=== PATIENT | female | born 1930 | race Caucasian/White ===

== ENCOUNTER 2017-01-15 20:23 | Inpatient (IN) | payer MEDICARE, BC ==
--- NOTE | 2017-01-15 20:42 | EDM.PDOC ---
ED HPI GENERAL MEDICAL PROBLEM - General Chief Complaint: Neurological Problem Stated Complaint: DISORIENTATED, MAY HAVE HAD MINI STROKE? Time Seen by Provider: 01/15/17 20:38 Source of Information: Reports: Patient, Family History Limitations: Reports: No Limitations - History of Present Illness INITIAL COMMENTS - FREE TEXT/NARRATIVE: pt states feels fine, denies pain anywhere. son states they been out and got home and mother suddenly became confused and unable to speak denies falling/ unsteadiness. came here and now she seems fine again. denies prior h/o. - Related Data Allergies Allergy/AdvReac Type Severity Reaction Status Date / Time No Known Drug Allergies Allergy Cannot Verified 01/15/17 20:39 Remember Home Meds: Home Meds Hydrochlorothiazide 25 mg PO DAILY 03/07/16 [History] LORazepam [LORazepam] 1 mg PO DAILY 03/07/16 [History] Levothyroxine 75 mcg PO DAILY 03/07/16 [History] Meclizine [Antivert] 25 mg PO DAILY 03/07/16 [History] Metoprolol Succinate [Toprol XL 50mg] 100 mg PO DAILY 03/07/16 [History] amLODIPine [Norvasc] 5 mg PO DAILY 03/07/16 [History] Past Medical History HEENT History: Reports: Impaired Vision Cardiovascular History: Reports: Hypertension [employer] History: Reports: Other (See Below) Other OB/BYN History: D&C x4 Psychiatric History: Reports: Anxiety Endocrine/Metabolic History: Reports: Hypothyroidism - Past Surgical History Female Surgical History: Reports: D&C Social & Family History - Family History Family Medical History: Noncontributory - Tobacco Use Smoking Status *Q: Never Smoker Second Hand Smoke Exposure: No - Caffeine Use Caffeine Use: Reports: Coffee - Alcohol Use Days Per Week of Alcohol Use: 7 Number of Drinks Per Day: 1 Total Drinks Per Week: 7 - Recreational Drug Use Recreational Drug Use: No - Living Situation & Occupation Living situation: Reports: , with Spouse Occupation: Retired ED ROS GENERAL - Review of Systems Review Of Systems: ROS reveals no pertinent complaints other than HPI. - Physical Exam Exam: See Below Exam Limited By: No Limitations General Appearance: Alert, WD/WN, No Apparent Distress Eye Exam: Bilateral Eye: PERRL (pupils ess ER @ 4mm) Ears: Hearing Grossly Normal Throat/Mouth: Normal Voice, No Airway Compromise Head Exam: Atraumatic Neck: Non-Tender, Full Range of Motion Respiratory/Chest: No Respiratory Distress Cardiovascular: Regular Rate, Rhythm GI/Abdominal: Soft, Non-Tender Neuro Exam (Abbreviated): Alert, Oriented, Normal Cognition, Normal Gait, No Motor/Sensory Deficits Psychiatric: Normal Affect, Normal Mood Skin Exam: Warm, Dry, Normal Color Course - Vital Signs Last Recorded V/S: Last Vital Signs Temp 36.1 C 01/15/17 20:34 Pulse 62 01/15/17 20:34 Resp 18 01/15/17 20:34 BP 149/66 H 01/15/17 20:34 Pulse Ox 96 01/15/17 20:34 - Orders/Labs/Meds Orders: Active Orders 24 hr Category Date Time Status EKG 12 Lead [EKG Documentation Completion] [RC] STAT Care 01/15/17 20:33 Active Head wo Cont [CT] Urgent Exams 01/15/17 20:34 Ordered Labs: Laboratory Tests 01/15/17 01/15/17 Range/Units 20:30 20:30 WBC 7.4 (5.0-10.0) 10^3/uL RBC 4.55 (4.2-5.4) 10^6/uL Hgb 14.4 (12.0-16.0) g/dL Hct 41.1 (37.0-47.0) % MCV 90.3 (80-100) fL MCH 31.6 (27.0-34.0) pg MCHC 35.0 (33.0-35.0) g/dL Plt Count 220 (150-450) 10^3/uL Neut % (Auto) 59.0 (42.2-75.2) % Lymph % (Auto) 28.4 (20.5-50.1) % [place] % (Auto) 11.0 H (2-8) % Eos % (Auto) 1.2 (1.0-3.0) % Baso % (Auto) 0.4 (0.0-1.0) % Sodium 129 L (135-145) mmol/L Potassium 2.8 L (3.6-5.0) mmol/L Chloride 89 L (101-111) mmol/L Carbon Dioxide 28.0 (21.0-31.0) mmol/L Anion Gap 14.8 BUN 14 (7-18) mg/dL Creatinine 0.9 (0.6-1.3) mg/dL Est Cr Clr Drug Dosing 33.23 mL/min Estimated GFR (MDRD) 59 BUN/Creatinine Ratio 15.55 Glucose 148 H (74-105) mg/dL Calcium 9.6 (8.4-10.2) mg/dl Total Bilirubin 0.5 (0.2-1.0) mg/dL AST 19 (10-42) IU/L ALT 14 (10-60) IU/L Alkaline Phosphatase 84 (42-121) IU/L Troponin I < 0.02 (0.00-0.02) ng/ml Total Protein 7.2 (6.7-8.2) g/dl Albumin 4.1 (3.2-5.5) g/dl Globulin 3.1 Albumin/Globulin Ratio 1.32 - Re-Assessments/Exams Free Text/Narrative Re-Assessment/Exam: 01/15/17 21:[address] calle who kindly admitted pt for observation and rebalance of eletrolytes. Departure - Departure Time of Disposition: 21:09 Disposition: Refer to Observation Condition: Fair Clinical Impression: Hyponatremia, Hypokalemia TIA (transient ischemic attack) Qualifiers: Transient cerebral ischemia type: unspecified Qualified Code(s): G45.9 - Transient cerebral ischemic attack, unspecified - Discharge Information Forms: ED Department Discharge - My Orders Last 24 Hours: My Active Orders 01/15/17 20:33 EKG 12 Lead [EKG Documentation Completion] [RC] STAT 01/15/17 20:34 Head wo Cont [CT] Urgent - Assessment/Plan Last 24 Hours: My Active Orders 01/15/17 20:33 EKG 12 Lead [EKG Documentation Completion] [RC] STAT 01/15/17 20:34 Head wo Cont [CT] Urgent
[2017-01-15 20:59] LABS: CHLORIDE,CL 89 mmol/L (101-111); SODIUM,NA 129 mmol/L (135-145)
[2017-01-15] MEDS ORDERED: Sodium Chloride 0.9% 10 ML Syringe FLUSH PRN (22:27)
[2017-01-15] MEDS ORDERED: Potassium Chloride 10 MEQ in Premix Bag 1 BAG IV ONE (22:30)
[2017-01-15] MEDS ORDERED: Potassium Chloride 10 MEQ Tab.ER PO ONE (22:37)
[2017-01-15] MEDS ORDERED: Bisacodyl 10 MG Supp RECTAL PRN (22:40)
[2017-01-15] MEDS ORDERED: Acetaminophen 325 MG Tab PO PRN (22:40)
[2017-01-16] MEDS ORDERED: Levothyroxine 75 MCG Tab PO SCH (06:00)
[2017-01-16 06:51] LABS: SODIUM,NA 131 mmol/L (135-145)
[2017-01-16] MEDS ORDERED: Potassium Chloride 10 MEQ Tab.ER PO SCH (08:00)
[2017-01-16] MEDS ORDERED: Metoprolol Succinate 50 MG Tab.ER PO SCH (09:00)
[2017-01-16] MEDS ORDERED: amLODIPine 5 MG Tab PO SCH (09:00)
[2017-01-16 09:26] VITALS: BP 146/79
--- NOTE | 2017-01-17 10:30 | EKG ---
01/15/2017 - ALICIA VIEIRA - This 12-lead EKG shows a normal sinus rhythm with a ventricular rate of 63. Early R-wave progression. Right bundle branch block. No other comments are made. [facility] /[id number]
--- NOTE | 2017-01-19 10:34 | PN ---
DATE: 01/17/2017 SUBJECTIVE: Mrs. Flores is an 86-year-old lady who was admitted to the hospital overnight on January 15, 2017, to January 16, 2017. She was hospitalized following a transient episode of confusion, slurred speech, and word-finding difficulty. Episode lasted about 10 minutes in total. A carotid Doppler and an echocardiogram are being ordered as part of followup to assess her risk factors for stroke. IMPRESSION: Recent episode of confusion, slurred speech, and word-finding difficulties. PLAN: Assess for stroke risk. [facility] /[id number]
--- NOTE | 2017-01-19 10:58 | DISCH ---
HISTORY AND PHYSICAL AND DISCHARGE SUMMARY DISCHARGE DIAGNOSES: 1. Transient confusion, slurred speech, and word finding difficulty, resolved. 2. No acute intracranial findings. 3. Chronic microvascular changes seen on head CT. 4. Hyponatremia and hypokalemia, on hydrochlorothiazide. 5. Hydrochlorothiazide, discontinued. 6. Hypertension by history. 7. Hypothyroidism by history. 8. Anxiety by history. 9. Right bundle branch block. SCHEDULED FOLLOWUP: 1. 01/19/2017: Carotid ultrasound and echocardiogram. 2. Repeat lab work next week including potassium, magnesium, and sodium. 3. January 23 at 0950 hours with Marianela Contreras NP for hospital followup. BRIEF HISTORY OF PRESENT ILLNESS: Mrs. Flores is an 86-year-old female brought in by her family. They had gone to a family dinner at her sister's. She felt well before going to the dinner. Her son stated that she seemed "a little off" during the day, but nothing specific. When they arrived back at the house, she had trouble getting her words out. Son called 911. After 2 minute, she started talking, and her speech seemed slurred. The episode lasted 10 minutes in total. She was seen and evaluated in the Emergency Department, and referred for further management. PAST MEDICAL HISTORY: 1. Hypertension. 2. Secondary hypothyroidism following partial thyroidectomy. 3. Dyslipidemia. 4. Anxiety disorder. 5. Osteoarthritis. 6. Intermittent vertigo. PAST SURGICAL HISTORY: 1. 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 2. A cervical cone biopsy for abnormal Paps, 1958. IMMUNIZATION HISTORY: 1. PCV13; 07/27/2014. 2. PPV23; 02/07/2010. 3. Tdap; 03/15/2017. 4. Zoster 03/14/2008. SOCIAL HISTORY: Mrs. Flores is . Her in 1995. She has 4 children, 10 grandchildren, and 11 great grandchildren, as well as several step grandchildren and great grandchildren. 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 She has never smoked cigarettes, and drinks an occasional beer. She did not serve in the [employer] . FAMILY HISTORY: Mother had Parkinson disease and diminished vision secondary to cataracts. She is 1 of 8 siblings; one sibling has . Father's medical history is unknown; he in 1989. REVIEW OF SYSTEMS: She did state that she was tired when she arrived back at her home after being out all day. It was a large family gathering. She had 1 can of beer. She was aware of the episode. She denied any headache or vision change. No swallowing difficulty. There was no loss of consciousness. She denies any arm or leg weakness. There have been no previous episodes. 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 She has early cataracts, but has not had surgery yet. She does continue to drive, although her family puts her car away for the winter and takes wherever she wants to go. She also does not drive at night. Denied chest pain or shortness of breath, palpitations. No orthopnea. No abdominal pain. No change in bowel or bladder habits. Appetite and weight are stable. No blood by mouth or rectum. No hematuria. No fever, or chills. No cough. No rash. No recent falls or injuries. No recent medication changes. MEDICATIONS: 1. Amlodipine 5 mg daily. 2. Levothyroxine 75 mcg daily. 3. Meclizine 25 mg daily. 4. Metoprolol succinate 100 mg daily. 5. Lorazepam 1 mg at bedtime as needed for anxiety, lack of sleep. New medications added during this admission; 1. Potassium chloride 10 mEq daily. 2. Aspirin EC 81 mg daily. Medications discontinued during this admission. 1. Hydrochlorothiazide, due to hypokalemia and hyponatremia. ALLERGIES: Allergies to Altace and diltiazem. She also has an allergy to eggs, which is the reason she does not take the influenza vaccine. PHYSICAL EXAMINATION: General: Mrs. Flores was admitted overnight from the ER and was seen in the morning. At the time of the exam, she was awake, alert, oriented, ambulatory, and participated actively in the visit. Her son was present during the interview. Vital Signs: Blood pressure 146/49, pulse 60 and regular, respiratory rate 20, oxygen saturation 99% on room air, temperature 97.3, weight 143 pounds, 5 foot 1 inch. HEENT: Showed the face to be symmetric. Neck was supple. There were no meningeal signs. Sclerae were nonicteric. Conjunctivae were not injected. Extraocular motions were intact. Pupils were equally round, reactive. Cranial nerves II through XII were intact. Tongue was midline. Speech was clear and not slurred. There was no facial asymmetry. No JVDs or bruits. No adenopathy. There is a healed scar from a partial thyroidectomy. Chest: Showed clear bilateral breath sounds without wheezes, rales, or rhonchi. Heart: Showed regular rate and rhythm without any ectopy. ekg monitor showed normal sinus rhythm with a controlled ventricular rate. Abdomen: Soft, benign, nontender. No masses were palpated. Exam was nontender. Extremities: Showed no edema. Neurological: She was alert, oriented. Memory was intact. Speech was clear and not slurred. She was able to move all extremities independently. Gait was normal. There was no ataxia. Motor was 5/5 in all extremities. There were no gross motor or sensory deficits. LABORATORY DATA: CBC and a comprehensive profile showed hemoglobin and hematocrit 14 and 41, white count and platelets were normal. Admission sodium was 129 and 131 in the morning. Potassium was 2.8 on admission and 3.4 in the morning. BUN and creatinine were 14 and 0.9 with a GFR of 59, nonfasting blood sugar 148. LFTs were unremarkable. Albumin was 4.1. Troponin was negative x2 at less than 0.02. A noncontrast CT scan of the head was performed. There was no evidence of any acute infarction. No evidence for any bleeding. There were white matter changes consistent with chronic small vessel ischemic disease. No hydrocephalus. There were atherosclerotic changes seen within the anterior and posterior circulations. There were no acute intracranial findings. A 12-lead EKG was obtained and showed a normal sinus rhythm with a ventricular rate of 63. There was a right bundle-branch block. HOSPITAL COURSE: Mrs. Flores was admitted as an inpatient. She was placed on cardiac telemetry overnight. Telemetry showed normal sinus rhythm without ectopy. Her usual medications were continued except for her hydrochlorothiazide which was held and then later discontinued upon discharge. She received 1 dose of IV potassium chloride 10 mEq and 20 mEq by mouth. Next day, she was started on 20 mEq b.i.d. with meals. She was placed on a fluid restriction of 1200 mL for the hyponatremia. She remained hemodynamically stable overnight with no further subjective or objective evidence for any neurological deficit. I met with Mrs. Flores and her son at the time of the interview and physical exam. She does not appear to have any persistent neurological deficits. She may have had a TIA, however, she had been out all day. She said that she was quite tired when she got home. She had 1 beer during the family dinner and she also was hypokalemic and hyponatremic, most likely because of the hydrochlorothiazide and all of these may have combined to cause the above events. Because she was stable without any deficits and felt eager to go home, she was discharged to care of her family. PLAN: 1. She will return to the hospital on January 19 for an ultrasound of the carotid arteries. We have also ordered an echocardiogram for the same day. 2. We have ordered followup labs for next week including sodium, potassium, magnesium. 3. We have made a followup appointment with her primary provider, Marianela Contreras NP for January 23 at the [facility] at 0950 hours. 4. We have discontinued the hydrochlorothiazide as this was a contributing factor to the electrolyte abnormalities. 5. She was started on aspirin EC 81 mg daily. 6. She will follow her usual diet and activity as tolerated. She does not drive, so this was not added as a caution, although I did speak to her son about this. During the winter family bates her car and she does not drive. 7. She should seek re-evaluation for any symptoms of concern, such as slurred speech, arm or leg weakness, etc. 8. Her PPV23 is due. She also will need an updated tetanus as well. IMPRESSION: An 86-year-old lady presents with transient confusion, slurred speech, and word-finding difficulty. It is not clear if this was a TIA or the result of a long day out with family. We have ordered additional workup as above, and she will follow up with her primary care provider next week. CONDITION AT TIME OF ADMISSION AND DISCHARGE: Hemodynamically and neurologically stable. CODE STATUS: Code status during this admission: Full code. [facility] /[id number] MANDA
== END 2017-01-16 14:20 | disposition home or self-care (01) | DRG 948 ==
LOC: DL.ED 20:23 → UNDOADMIN 21:16 → DL.MS 21:16
PROVIDERS: ADMIT Internal Medicine; ATTEND Internal Medicine
DX: R41.0 Disorientation, unspecified (principal); E87.1 Hypo-osmolality and hyponatremia; G45.9 Transient cerebral ischemic attack, unspecified; R47.01 Aphasia; R47.81 Slurred speech; E87.6 Hypokalemia; R42 Dizziness and giddiness; I10 Essential (primary) hypertension; E03.9 Hypothyroidism, unspecified; F41.9 Anxiety disorder, unspecified; E78.5 Hyperlipidemia, unspecified; M19.90 Unspecified osteoarthritis, unspecified site
CPT/HCPCS: 36415; 70450; 80053; 83735; 84132; 84295; 84484; 85025; 93005; 93010; 99285; A9270-GY; J3480